=== PATIENT | female | born 1955 | race Two or more races ===

== ENCOUNTER 2018-12-30 01:43 | Inpatient (IN) | payer MEDICARE, OTHER ==
[~2018-12-30] VITALS: Ht 154.9 cm; Wt 83.9 kg
--- NOTE | 2018-12-30 01:56 | NUR ---
BIBA W/ C/O CP X 25 MIN. PT EXPLAINED THE PAIN ON MID CHEST RADIATING TO THE L SHOULDER AND BACK RATED 5/10. DENIED N/V OR H/A. PT WAS PLACED LISA MONITOR. VS OBTAINED. WILL CONT TO MONITOR.
--- NOTE | 2018-12-30 02:17 | NUR ---
X.RAY TECH AT THE BED SIDE
--- NOTE | 2018-12-30 02:18 | NUR ---
RADIOLOGY AT BEDSIDE FOR XRAY
[2018-12-30 02:31] LABS: BASOPHILS % (AUTO) 0.4 % (0.0-2.0); EOSINOPHILS % (AUTO) 2.5 % (0.0-6.0); HEMATOCRIT 36 % (33-45); HEMOGLOBIN 12.2 g/dL (11.5-14.8); LYMPHOCYTES # (AUTO) 2.4 /CMM (0.8-4.8); LYMPHOCYTES % (AUTO) 36.2 % (20.0-44.0); MEAN CORPUSCULAR HGB CONC 34 g/dl (31.0-36.0); MEAN CORPUSCULAR VOLUME 93 fL (82-100); MONOCYTES # (AUTO) 0.5 /CMM (0.1-1.30); NEUTROPHILS # (AUTO) 3.6 /CMM (1.8-8.9); NEUTROPHILS % (AUTO) 53.9 % (43.0-81.0); PLATELET COUNT (AUTO) 193 /CMM (150-450); RED BLOOD CELL COUNT(AUTO) 3.84 MIL/uL (4.0-5.2); WHITE BLOOD COUNT (AUTO) 6.6 K/uL (4.3-11.0)
[2018-12-30] MEDS ORDERED: OMEP40CA37 PO (02:42)
[2018-12-30] MEDS ORDERED: AMLO5TAB9 PO (02:42)
[2018-12-30] MEDS ORDERED: FURO20TA4 PO (02:42)
[2018-12-30] MEDS ORDERED: POTA10CA43 PO (02:42)
[2018-12-30] MEDS ORDERED: ATOR80TA PO (02:42)
[2018-12-30] MEDS ORDERED: AMIO200T4 PO (02:42)
[2018-12-30] MEDS ORDERED: HYDR-4076 PO (02:42)
[2018-12-30] MEDS ORDERED: LORA0.5T PO (02:42)
[2018-12-30] MEDS ORDERED: LOSA100T31 PO (02:42)
[2018-12-30] MEDS ORDERED: METF-442 PO (02:42)
[2018-12-30] MEDS ORDERED: ASPI-1152 PO (02:42)
[2018-12-30] MEDS ORDERED: GABA-532 PO (02:42)
[2018-12-30] MEDS ORDERED: METO-358 PO (02:42)
--- NOTE | 2018-12-30 02:48 | NUR ---
MED RECON DONE PER MEDICATION'S BOTTLE PROVIDED BY THE PT'S SON.
[2018-12-30 02:54] LABS: CARBON DIOXIDE 26 mmol/L (21-32); CHLORIDE 104 mmol/L (98-107); CREATININE 1.3 mg/dL (0.6-1.3); GLUCOSE 122 mg/dL (74-106); POTASSIUM 4.3 mmol/L (3.5-5.1); SODIUM SERUM 139 mmol/L (136-145); UREA NITROGEN, BLOOD 24 mg/dL (7-18)
[2018-12-30 03:06] LABS: ALANINE AMINOTRANSFERASE 37 U/L (12-78); ALBUMIN 3.7 g/dL (3.4-5.0); ALKALINE PHOSPHATASE 86 U/L (46-116); ASPARTATE AMINOTRANSFERASE 16 U/L (15-37); B-TYPE NATRIURETIC PEPTIDE 951 PG/ML (0-125); BILIRUBIN,DIRECT 0.1 mg/dL (0.0-0.2); BILIRUBIN,TOTAL 0.4 mg/dL (0.2-1.0); TOTAL PROTEIN, SERUM 7.7 g/dL (6.4-8.2)
[2018-12-30] MEDS ORDERED: ZOLPIDEM TARTRATE 5 MG TABLET PO PRN (03:30)
[2018-12-30] MEDS ORDERED: MORPHINE SULFATE INJ 2 MG/ML DISP.SYRIN IV PRN (03:30)
[2018-12-30] MEDS ORDERED: HYDROCODONE/APAP 5/325MG 1 EACH TABLET PO PRN (03:30)
[2018-12-30] MEDS ORDERED: MAGNESIUM HYDROXIDE 30 ML UDC PO PRN (03:30)
[2018-12-30] MEDS ORDERED: ONDANSETRON HCL/PF 4 MG/2 ML VIAL IVP PRN (03:30)
[2018-12-30] MEDS ORDERED: NITROGLYCERIN 0.4 MG/TAB BOTTLE SL PRN (03:30)
[2018-12-30] MEDS ORDERED: MAG HYDROX/AL HYDROX/SIMETH 30 ML UDC PO PRN (03:30)
--- NOTE | 2018-12-30 03:31 | NUR ---
BED ASSIGNMENT: 304-1
--- NOTE | 2018-12-30 03:43 | NUR ---
REPORT GIVEN TO ZARA ON THID FLOOR
[2018-12-30 04:00] VITALS: BP 139/61
--- NOTE | 2018-12-30 04:01 | NUR ---
PT WAS TRANSFERRED TO 304- UNDER ACLS PROTOCOL
--- NOTE | 2018-12-30 04:15 | NUR ---
RN ADMITTING NOTES Pt ARRIVED TO THE FLOOR VIA ER [facility]. Pt WAS ABLE TO WALK WITH STEADY GAIT TO ROOM BED. Pt IS A/OX4, [place] CITIZ[place] SPEAKING ONLY. FAMILY AT BEDSIDE HELPED WITH TRANSLATION. NO S/S OF ACUTE DISTRESS OR SOB NOTED. Pt STATED SHE NO LONGER HAS CP. IV ACCESS ON LHAND #20G, SL. ON TELE MONITOR. TELE READING SR60. SAFETY MEASURES IN PLACE. BED LOW, LOCKED, HOB ELEVATED, SIDE RAILS UP, CALL LIGHT AND BEDSIDE TABLE WITHIN REACH. WILL CONTINUE TO MONITOR Pt's CONDITION AND SAFETY THROUGHOUT THE NIGHT.
[2018-12-30 04:30] VITALS: BP 139/61
[2018-12-30] MEDS: ACETAMINOPHEN 325 MG TABLET PO PRN ×2 (04:30→22:24)
--- NOTE | 2018-12-30 04:45 | NUR ---
RN NOTES Pt REFUSED SKIN ASSESSMENT OF PRIVATE AREA. PER Pt STATEMENT SAID SHE DOES NOT HAVE ANY WOUNDS ON HER BODY. Pt IS AMBULATORY WITH STEADY GAIT.
--- NOTE | 2018-12-30 06:44 | NUR ---
RN CLOSING NOTES NO SIGNIFICANT CHANGES IN Pt's CONDITION. ALL NEEDS MET AND ATTENDED TO. Pt IS CURRENTLY RESTING IN BED, WITH EVEN AND UNLABORED RESPIRATIONS. NO S/S OF ACUTE DISTRESS OR SOB NOTED DURING THE NIGHT. Pt REMAINS IN STABLE CONDITION. SAFETY MEASURES IN PLACE. BED LOW, LOCKED, HOB ELEVATED, SIDE RAILS UP, CALL LIGHT AND BEDSIDE TABLE WITHIN REACH. BED ALARM ON. TELE READING SB [id number]. WILL ENDORSE TO DAYSHIFT RN FOR Pt's IAN.
--- NOTE | 2018-12-30 07:32 | NUR ---
COORDINATOR INTEGRATED MARKETING OPENING NOTES RECEIVED PATIENT AWAKE IN BED IN NO ACUTE SIGNS OF DISTRESS. A/O X4. ABLE TO VERBALIZED NEEDS, DENIES PAIN OR ANY DISCOMFORTS AT THIS TIME. ON ROOM AIR, BREATHING EVEN AND UNLABORED. ON TELE-MONITORING WITH CURRENT READING OF SR WITH HR ON THE 60'S, NO C/O CARDIAC DISTRESS VOICED. IV ACCESS ON LEFT HAND INTACT AND PATENT, NO S/S OF INFILTRATIONS NOTED. SAFETY MEASURES IN PLACE. BED IN LOW LOCKED POSITION WITH SR UP X2. CALL LIGHT IN REACH. WILL CONTINUE TO MONITOR PT ACCORDINGLY.
[2018-12-30 08:00] VITALS: BP 135/58
[2018-12-30] MEDS: ASPIRIN 81 MG TAB.CHEW PO SCH (09:49)
[2018-12-30] MEDS: PANTOPRAZOLE 40 MG TABLET.DR PO SCH (09:49)
[2018-12-30] MEDS: METOPROLOL SUCCINATE 50 MG TAB.SR.24H PO SCH (10:30)
[2018-12-30] MEDS ORDERED: IV NS 0.9% 0 ML IV ONE (10:37)
[2018-12-30] MEDS ORDERED: METOPROLOL TARTRATE INJ 5 MG/5 ML AMPUL ONE (10:37)
[2018-12-30] MEDS ORDERED: NITROGLYCERIN 4.9 GM SPRAY SL PRN (11:00)
[2018-12-30] MEDS ORDERED: IV NS 0.9% 500 ML IV PRN (11:00)
[2018-12-30] MEDS ORDERED: METOPROLOL TARTRATE INJ 5 MG/5 ML AMPUL IVP PRN (11:00)
[2018-12-30] MEDS ORDERED: CT SWABBABLE VALVE TRANS SET 1 EA INFUS.SET MC ONE (11:02)
[2018-12-30] MEDS ORDERED: IOHEXOL-350 100 ML VIAL IV ONE (11:02)
[2018-12-30] MEDS ORDERED: IV NS 0.9% 250 ML IV ONE (11:02)
[2018-12-30 12:00] VITALS: BP 149/52
[2018-12-30] MEDS: LOSARTAN POTASSIUM 50 MG TABLET PO SCH (12:27)
[2018-12-30 16:00] VITALS: BP 138/60
--- NOTE | 2018-12-30 18:45 | NUR ---
CARDIOTHORACIC SURGEON CLOSING NOTES: PATIENT IS CURRENTLY RESTING IN BED. A/O X4. NO COMPLAINS OF PAIN. NO SIGNS OF DISTRESS OR SOB NOTED DURING MY SHIFT. RESPIRATIONS ARE EVEN AND UNLABORED. FAMILY IS PRESENT AT BEDSIDE. NO SIGNIFICATION CHANGES IN PATIENT'S CONDITION. ALL DUE MEDS GIVEN ORDERED. TOLERATED WELL. SAFETY MEASURES KEPT IN PLACE. BED IS IN LOW, LOCKED, POSITION WITH HOB ELEVATED, SIDE RAILS UP X2. CALL LIGHT IS WITHIN EASY REACH. BED ALARM ON. TELE READING [id number]. WILL ENDORSE TO FEED MILL TENDER FOR IAN.
--- NOTE | 2018-12-30 19:49 | NUR ---
AIRPLANE DISPATCHER OPENING NOTE RECEIVED PATIENT IN BED. A/O X4. BRAZILIAN SPEAKING, ABLE TO MAKE NEEDS KNOWN. TOLERATING ROOM AIR. RESPIRATIONS ARE EVEN AND UNLABORED. NO SOB NOTED. DENIES PAIN AT THIS TIME. EXTERNAL TELE MONITOR READS SR - SINUS DIEGO 60. IN NO APPARENT DISTRESS AT THIS TIME. IV ACCESS IN LEFT HAND #22 PATENT AND SALINE LOCKED. FAMILY AT THE BED SIDE. BED IS LOW AND LOCKED, SIDE RAILS UP X2, HOB ELEVATED IN HIGH FOWLERS POSITION. CALL LIGHT WITHIN REACH. WILL CONTINUE TO MONITOR.
[2018-12-30 20:00] VITALS: BP 156/63
--- NOTE | 2018-12-30 20:16 | NUR ---
LAST REMODELER REPAIRER NOTE CALLED PHARMACY TO NOTIFY THEM THAT THE PATIENT HAS NORVASC 5MG SCHEDULED FOR 2100 AND 2200 TONIGHT. THEY DC THE NORVASC 5MG AT 2100.
[2018-12-30] MEDS ORDERED: AMLODIPINE BESYLATE 5 MG TABLET PO SCH ×2 (21:00→22:00)
[2018-12-30] MEDS ORDERED: ATORVASTATIN 40 MG TABLET PO SCH (22:00)
--- NOTE | 2018-12-30 22:26 | NUR ---
PHARMACIST'S AIDE NOTE ADMINISTERED PRN ACETAMINOPHEN 650MG FOR C/O HEADACHE. WILL CONTINUE TO MONITOR.
[2018-12-31] VITALS: BP 148/61
[2018-12-31 04:00] VITALS: BP 129/61
--- NOTE | 2018-12-31 06:23 | NUR ---
SUPERVISOR STAVE CUTTING CLOSING NOTE PATIENT IN BED. A/O X4. DJIBOUTIAN SPEAKING, ABLE TO MAKE NEEDS KNOWN. REMAINS TOLERATING ROOM AIR. RESPIRATIONS ARE EVEN AND UNLABORED. NO S/S SOB NOTED. NO C/O CHEST PAIN THROUGHOUT SHIFT. EXTERNAL TELE MONITOR READS SR - SINUS DIEGO 60. NO DISTRESS NOTED . IV ACCESS MAINTAINED IN LEFT HAND #22 AND LFA #22 PATENT AND SALINE LOCKED. BED IS LOW AND LOCKED, SIDE RAILS UP X2, HOB FLAT. PATIENT MOVES INDEPENDENTLY IN BED. CALL LIGHT WITHIN REACH. WILL ENDORSE TO NEXT SHIFT.
[2018-12-31 06:25] LABS: BASOPHILS % (AUTO) 0.8 % (0.0-2.0); EOSINOPHILS % (AUTO) 2.8 % (0.0-6.0); HEMATOCRIT 33 % (33-45); HEMOGLOBIN 11.7 g/dL (11.5-14.8); LYMPHOCYTES # (AUTO) 1.9 /CMM (0.8-4.8); LYMPHOCYTES % (AUTO) 32.6 % (20.0-44.0); MEAN CORPUSCULAR HGB CONC 35 g/dl (31.0-36.0); MEAN CORPUSCULAR VOLUME 93 fL (82-100); MONOCYTES # (AUTO) 0.5 /CMM (0.1-1.30); MONOCYTES % (AUTO) 7.7 % (2.0-12.0); NEUTROPHILS # (AUTO) 3.3 /CMM (1.8-8.9); NEUTROPHILS % (AUTO) 56.1 % (43.0-81.0); PLATELET COUNT (AUTO) 185 /CMM (150-450); WHITE BLOOD COUNT (AUTO) 5.9 K/uL (4.3-11.0)
[2018-12-31 06:40] LABS: CALCIUM, SERUM 9.1 mg/dL (8.5-10.1); CREATININE 1.1 mg/dL (0.6-1.3); PHOSPHORUS 5.1 mg/dL (2.5-4.9); POTASSIUM 3.9 mmol/L (3.5-5.1)
[2018-12-31 06:48] LABS: THYROID STIMULATING HORMONE 3.825 uIU/mL (0.358-3.74)
--- NOTE | 2018-12-31 07:30 | NUR ---
MANAGER ACTION OPENING NOTES: RECEIVED PATIENT AWAKE AND STABLE IN BED. A/OX4. LAO SPEAKING. ABLE TO MAKE NEEDS KNOWN. NO SIGNS OF DISTRESS OR SOB. ON ROOM AIR. BREATHING EVEN AND UNLABORED. NO COMPLAINS OF PAIN OR DISCOMFORT AT THIS TIME. ON TELE MONITORING WITH CURRENT READING OF SR WITH HR OF 66. PERIPHERAL IV ON LEFT HAND #20G IS PATENT AND INTACT. SAFETY MEASURES ARE INITIATED. BED IS IN LOW, LOCKED POSITION WITH SIDERAILS UP X2. WILL CONTINUE TO MONITOR ACCORDINGLY.
[2018-12-31 08:00] VITALS: BP 152/71
[2018-12-31] MEDS: PANTOPRAZOLE 40 MG TABLET.DR PO SCH (08:30)
[2018-12-31] MEDS: ASPIRIN 81 MG TAB.CHEW PO SCH (08:31)
[2018-12-31] MEDS: LOSARTAN POTASSIUM 50 MG TABLET PO SCH (08:31)
[2018-12-31 11:00] VITALS: BP 148/64
[2018-12-31] MEDS: METOPROLOL SUCCINATE 50 MG TAB.SR.24H PO SCH (11:00)
--- NOTE | 2018-12-31 12:20 | NUR ---
BOX LIDDER DISCHARGE NOTES. PATIENT DISCHARGED HOME WITH DAUGHTER. DISCHARGE TEACHING PROVIDED TO PATIENT AND DAUGHTER, VERBALIZED UNDERSTANDING. INFORMED PATIENT TO FOLLOW UP MUTUEL DEPARTMENT MANAGER OUTPATIENT. ALL BELONGINGS ACCOUNTED FOR, BELONGING LIST SIGNED. DISCHARGE PROTOCOL FOLLOWED. PERIPHERAL IV REMOVED WITH MINIMAL BLEEDING. ID BAND REMOVED. PATIENT ESCORTED TO CAR BY RESEARCH NURSE PRACTITIONER.
== END 2018-12-31 12:10 | disposition home or self-care (01) | DRG 303 ==
LOC: ER 01:43 → TELE 03:34
DX: I25.10 Atherosclerotic heart disease of native coronary artery without angina pectoris (principal); E11.9 Type 2 diabetes mellitus without complications; I10 Essential (primary) hypertension; I25.2 Old myocardial infarction; E78.5 Hyperlipidemia, unspecified; E66.9 Obesity, unspecified; Z68.35 Body mass index [BMI] 35.0-35.9, adult; Z79.84 Long term (current) use of oral hypoglycemic drugs; Z79.82 Long term (current) use of aspirin; Z79.899 Other long term (current) drug therapy; Z95.1 Presence of aortocoronary bypass graft; Z82.49 Family history of ischemic heart disease and other diseases of the circulatory system; K44.9 Diaphragmatic hernia without obstruction or gangrene
CPT/HCPCS: 36415; 71045-TC; 75574; 80048-TC; 80061-TC; 80076-TC; 83735-TC; 83880; 84100-TC; 84443-TC; 84484-TC; 85025-TC; 85730-TC; 87081-TC; 93307-TC; G0378; J3490; J7050; Q9967

== ENCOUNTER 2022-06-01 23:10 | Emergency (ER) | payer MEDICARE, OTHER ==
[~2022-06-01] VITALS: Ht 157.5 cm; Wt 81.6 kg
[~2022-06-01 23:10] MED LIST: AMIO200T5 PO; AMLO-212 PO; ASPI-1420 PO; ATOR80TA PO; FURO20TA4 PO; GABA-532 PO; HYDR-4076 PO; LORA0.5T PO; LOSA100T31 PO; METF-442 PO; METO-358 PO; OMEP40CA21 PO; POTA10CA43 PO
--- NOTE | 2022-06-01 23:29 | NUR ---
BIBRA 84 FROM HOME FOR C/O L UNDER BREAST DISCOMFORT. HAD HIGH BP OF 170s. PT AAOX4, SPEAKS LUXEMBOURGER. PLACED COMFORTABLY IN BED. VITALS CHECKED. GRANDDAUGHTER CARROL AT BEDSIDE.
--- NOTE | 2022-06-01 23:32 | NUR ---
CARROL, GRAND DAUGHTER: [phone]
--- NOTE | 2022-06-02 00:10 | NUR ---
XR AT BEDSIDE
--- NOTE | 2022-06-02 00:20 | NUR ---
20GA LEISA ESTABLISHED. PT TOLERATED WELL.
--- NOTE | 2022-06-02 00:25 | NUR ---
BLOOD WORK COLLECTED AND SENT TO LAB
[2022-06-02 00:40] LABS: BASOPHILS # (AUTO) 0.1 K/uL (0.0-0.2); BASOPHILS % (AUTO) 0.6 % (0.0-2.0); HEMATOCRIT 31 % (33-45); HEMOGLOBIN 10.3 g/dL (11.5-14.8); LYMPHOCYTES # (AUTO) 1.9 K/uL (0.8-4.8); LYMPHOCYTES % (AUTO) 20.4 % (20.0-44.0); MEAN CORPUSCULAR HGB CONC 34 g/dl (31.0-36.0); MEAN CORPUSCULAR VOLUME 87 fL (82-100); MONOCYTES # (AUTO) 0.6 K/uL (0.1-1.30); MONOCYTES % (AUTO) 6.1 % (2.0-12.0); NEUTROPHILS # (AUTO) 6.8 K/uL (1.8-8.9); NEUTROPHILS % (AUTO) 70.9 % (43.0-81.0); PLATELET COUNT (AUTO) 237 K/uL (150-450); RED BLOOD CELL COUNT(AUTO) 3.51 MIL/uL (4.0-5.2); WHITE BLOOD COUNT (AUTO) 9.5 K/uL (4.3-11.0)
[2022-06-02 00:50] LABS: CALCIUM, SERUM 8.8 mg/dL (8.5-10.1); CARBON DIOXIDE 23 mmol/L (21-32); CHLORIDE 105 mmol/L (98-107); CREATININE 1.1 mg/dL (0.6-1.3); GLUCOSE 227 mg/dL (74-106); POTASSIUM 3.7 mmol/L (3.5-5.1); SODIUM SERUM 139 mmol/L (136-145); UREA NITROGEN, BLOOD 23 mg/dL (7-18)
[2022-06-02 01:04] LABS: ALANINE AMINOTRANSFERASE 21 U/L (12-78); ALBUMIN 3.7 g/dL (3.4-5.0); ALKALINE PHOSPHATASE 98 U/L (46-116); ASPARTATE AMINOTRANSFERASE 19 U/L (15-37); BILIRUBIN,DIRECT 0.1 mg/dL (0.0-0.2); BILIRUBIN,TOTAL 0.4 mg/dL (0.2-1.0); TOTAL PROTEIN, SERUM 7.5 g/dL (6.4-8.2)
--- NOTE | 2022-06-02 02:56 | NUR ---
Patient discharged to home in stable condition. Written and verbal after care instructions given. Patient verbalizes understanding of instruction. IV removed. Catheter intact and site benign. Pressure and 4x4 applied to site. No bleeding noted.
[2022-06-02 03:02] VITALS: BP 114/59
== END 2022-06-02 03:03 | disposition home or self-care (01) ==
LOC: ER 23:12
DX: I10 Essential (primary) hypertension (principal); R00.2 Palpitations; E11.9 Type 2 diabetes mellitus without complications; Z60.2 Problems related to living alone; Z79.899 Other long term (current) drug therapy
CPT/HCPCS: 36415; 71045-TC; 80048-TC; 80076-TC; 83880; 84484-TC; 85025-TC